=== PATIENT | female | born 1965 | race Caucasian/White ===

== ENCOUNTER 2017-07-09 16:12 | Observation (INO) | payer OTHER ==
[~2017-07-09] VITALS: Ht 175.3 cm; Wt 88.6 kg
[2017-07-09 17:48] VITALS: PULSE 79
[2017-07-09 17:50] VITALS: BP 130/84; PULSE 80; RESP 16
[2017-07-09 17:58] VITALS: Ht 175.3 cm; Wt 88.6 kg
[2017-07-09] MEDS ORDERED: LEVO175T6 PO (18:27)
[2017-07-09] MEDS ORDERED: METO-335 PO (18:27)
[2017-07-09] MEDS ORDERED: ATOR10TA65 PO (18:27)
[2017-07-09] MEDS ORDERED: LISI20TA11 PO (18:27)
[2017-07-09] MEDS ORDERED: UDATA PO (18:27)
[2017-07-09] MEDS ORDERED: AMLO5TAB4 PO (18:27)
[2017-07-09] MEDS ORDERED: FLUO40CA PO (18:27)
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
[2017-07-09] MEDS ORDERED: MAGNESIUM HYDROXIDE 30ML CUP PO PRN (19:00)
[2017-07-09] MEDS ORDERED: DOCUSATE SODIUM 100 MG CAP PO PRN (19:00)
[2017-07-09] MEDS ORDERED: NACL 0.9% 3 ML SYG IV SCH (19:00)
[2017-07-09] MEDS ORDERED: hydrOXYzine HCL 2 MG/ML 5ML CUP PO PRN (19:00)
[2017-07-09] MEDS ORDERED: BISACODYL (EC) 5 MG TAB PO PRN (19:00)
[2017-07-09] MEDS ORDERED: ACETAMINOPHEN 325 MG TAB PO PRN (19:00)
[2017-07-09 19:37] VITALS: BP 147/78; RESP 20
[2017-07-09 20:27] VITALS: PULSE 75
[2017-07-09] MEDS: ATORVASTATIN 10 MG TAB PO SCH (20:32)
[2017-07-09] MEDS: CHLORDIAZEPOXIDE 25 MG CAP PO SCH (20:34)
[2017-07-09] MEDS: LORAZEPAM 1 MG TAB PO PRN (21:32)
[2017-07-10] VITALS (13 sets, daily range): BP systolic 103–136; BP diastolic 60–82; PULSE 66–77; RESP 18–20
[2017-07-10] MEDS ORDERED: LEVOTHYROXINE 175 MCG TAB PO SCH (07:00)
[2017-07-10 08:13] LABS: CHOL/HDL RATIO 3.5 RATIO
[2017-07-10] MEDS: METOPROLOL (XL) 25 MG TAB PO SCH ×2 (09:00→09:36)
[2017-07-10] MEDS: LISINOPRIL 20 MG TAB PO SCH (09:29)
[2017-07-10] MEDS: FOLIC ACID 1 MG TAB PO SCH (09:29)
[2017-07-10] MEDS: CHLORDIAZEPOXIDE 25 MG CAP PO SCH (09:30)
[2017-07-10] MEDS: AMLODIPINE 5 MG TAB PO SCH (09:31)
[2017-07-10] MEDS: MULTIVITAMINS THERAPEUTIC TAB PO SCH (09:31)
[2017-07-10] MEDS: ASPIRIN 81 MG TAB PO SCH (09:31)
[2017-07-10] MEDS: FLUOXETINE 20 MG CAP PO SCH (09:32)
[2017-07-10] MEDS: ENOXAPARIN 40 MG/0.4 ML SYG SC SCH (09:33)
[2017-07-10] MEDS: THIAMINE 100 MG TAB PO SCH (09:33)
--- NOTE | 2017-07-10 11:32 | PN ---
Date/Time of Note Date/Time of Note DATE: 07/10/17 TIME: 11:21 Assessment/Plan VTE Prophylaxis VTE Prophylaxis Intervention: LMWH Lines/Catheters IV Catheter Type (from Nrs): Saline Lock Assessment/Plan Assessment/Plan 1. Chest pain, atypical, follow up with cardiology 2. Alcoholism, patient had withsral symptoms on admission, controlled now, decrease librium 3. HTN, controlled 4. Hypothyroidism, increase synthroid due to TSH 12. Patient did not take synthroid for one week but her PCP was considering increase synthroid before that, 5. Dyslipidemia, on lipitor 6. DVT prophylaxis: lovenox Subjective 24 Hr Interval Summary Free Text/Dictation no chest pain or shortness of breath no tremor Exam/Review of Systems Vital Signs Vitals Vital Signs Date Time Temp Pulse Resp B/P Pulse Ox O2 Delivery O2 Flow Rate FiO2 07/10/17 08:08 97.8 81 20 132/82 97 07/09/17 17:50 Room Air Exam Constitutional: alert, obese, oriented, well developed Head: atraumatic, normocephalic Eyes: EOMI, PERRL, nl conjunctiva, nl lids ENMT: nl external ears & nose, nl lips & teeth, nl nasal mucosa & septum Neck: non-tender, supple Respiratory: clear to auscultation, normal air movement, No congested cough, No crackles/rales, No diminished breath sounds, No intercostal retraction, No labored breathing, No other, No respirations, No tactile fremitus, No wheezing Cardiovascular: nl pulses, regular rate and rhythm, No S3, No S4, No bruits, No diastolic murmur, No edema, No gallop, No irregular rhythm, No jugular venous distention (JVD), No murmurs/extra sounds, No other, No rub, No systolic murmur Gastrointestinal: nl liver, spleen, non-tender, soft, No ascites, No bowel sounds, No distended, No firm, No hepatomegaly, No mass , No other, No rebound or guarding, No splenomegaly, No surgical scars, No tender Musculoskeletal: nl extremities to inspection Extremities: normal pulses, No calf tenderness, No clubbing, No cyanosis, No edema, No other, No palpable cord, No pitting pedal edema, No tenderness Neurological: COMPLIANCE ADVISOR II-XII intact, nl mental status, nl speech, nl strength Lymph: nl lymph nodes Results Results 24 hrs Laboratory Tests Test 07/09/17 19:26 07/10/17 00:54 07/10/17 07:19 Troponin I < 0.012 < 0.012 Hemoglobin A1c 5.3 Triglycerides Level 127 Cholesterol Level 176 LDL Cholesterol, Calculated 101 HDL Cholesterol 50 Cholesterol/HDL Ratio 3.5 Thyroid Stimulating Hormone (TSH) 12.500 H Medications Medications Current Medications Aspirin (Aspirin) 81 mg DAILY PO Last administered on 07/10/17 09:31; Admin Dose 81 MG; Start 07/10/17 at 09:00 Acetaminophen (Tylenol Tab) 650 mg Q6H PRN PO PAIN LEVEL 1-3 OR FEVER; Start at 19:00 Acetaminophen/ Hydrocodone Bitart ([place] (5/325)) 1 tab Q6H PRN PO PAIN LEVEL 4 -6; Start 07/09/17 at 19:00 Docusate Sodium (Colace) 100 mg Q12H PRN PO CONSTIPATION; Start 07/09/17 at 19: 00 Magnesium Hydroxide (Milk Of Mag) 30 ml DAILY PRN PO CONSTIPATION; Start at 19:00 Bisacodyl (Dulcolax) 5 mg DAILY PRN PO CONSTIPATION; Start 07/09/17 at 19:00 Enoxaparin Sodium (Lovenox) 40 mg DAILY SC Last administered on 07/10/17 09:33 ; Admin Dose 40 MG; Start 07/10/17 at 09:00 Amlodipine Besylate (Norvasc) 5 mg DAILY PO Last administered on 07/10/17 09: 31; Admin Dose 5 MG; Start 07/10/17 at 09:00 Atorvastatin Calcium (Lipitor) 10 mg QHS PO Last administered on 07/09/17 20: 32; Admin Dose 10 MG; Start 07/09/17 at 21:00 Fluoxetine HCl (Prozac) 40 mg DAILY PO Last administered on 07/10/17 09:32; Admin Dose 40 MG; Start 07/10/17 at 09:00 Hydroxyzine HCl (Atarax Liquid Cup) 25 mg Q6H PRN PO ITCHING; Start 07/09/17 at 19:00 Lisinopril (Zestril) 20 mg DAILY PO Last administered on 07/10/17 09:29; Admin Dose 20 MG; Start 07/10/17 at 09:00 Metoprolol Succinate (Toprol Xl) 25 mg DAILY PO Last administered on 07/10/17 09:36; Admin Dose 25 MG; Start 07/10/17 at 09:00 Thiamine HCl (Vitamin B1) 100 mg DAILY PO Last administered on 07/10/17 09:33 ; Admin Dose 100 MG; Start 07/10/17 at 09:00 Multivitamins Therapeutic (Theragran) 1 tab DAILY PO Last administered on 09:31; Admin Dose 1 TAB; Start 07/10/17 at 09:00 Folic Acid (Folic Acid) 1 mg DAILY PO Last administered on 07/10/17 09:29; Admin Dose 1 MG; Start 07/10/17 at 09:00 Chlordiazepoxide (Librium) 25 mg TID PO Last administered on 07/10/17 09:30; Admin Dose 25 MG; Start 07/09/17 at 21:00; Stop 07/10/17 at 21:00 Chlordiazepoxide (Librium) 25 mg BID PO ; Start 07/11/17 at 09:00; Stop at 21:00 Chlordiazepoxide (Librium) 25 mg DAILY ONCE PO ; Start 07/12/17 at 09:00; Stop 07/12/17 at 09:01 Lorazepam (Ativan) 1 mg Q4H PRN PO agitation/elevated CIWAS Last administered on 07/09/17 21:32; Admin Dose 1 MG; Start 07/09/17 at 19:30 JOSE GARCIA MD Jul 10, 2017 11:31
[2017-07-10] MEDS: HYDROCODONE/APAP (5/325) TAB PO PRN (12:14)
--- NOTE | 2017-07-10 15:52 | RADRPT ---
Echocardiogram Report Patient Name: VIOLETTA WALTERS Gender: Female Date: 1965 Study Date: 10-Jul-2017 Supervisor Lead Refinery: Radha Gamboa [facility] Location: [id number] Ref. Physician: CHELSY ABAD Quality: Adequate Procedures: Transthoracic echocardiogram with complete 2D, M-Mode, and doppler examination. Indications: Chest Pain. 2D/M Mode Doppler Measurement Value Normal Ranges Measurement Value Normal Ranges LVIDd 2D 3.9 3.5 - 5.6 cm AV Peak Ugo 1.2 m/sec LVIDs 2D 2.4 2.1 - 4.1 cm AV Peak PG 5.7 mmHg LVPWd 2D 1.1 0.6 - 1.1 cm LVOT Peak Ugo 1.0 m/sec IVSd 2D 1.2 0.6 - 1.1 cm MV E Peak Ugo 1.0 m/sec AoR Diam 2D 3.1 2.0 - 3.7 cm MV A Peak Ugo 0.7 m/sec LA Dimen 2D 2.2 2.3 - 4.0 cm MV E/A 1.3 MV Decel Time 194 msec MV Decel Harvey 5 MV E/A 1.3 TR Peak Ugo 2.3 m/sec TR Peak PG 20.8 mmHg RVSP 24.0 mmHg Findings Left Ventricle: Normal left ventricular systolic function. Normal left ventricular cavity size. Mild concentric left ventricular hypertrophy. Ejection fraction is visually estimated at 65 %. Tissue Doppler/Mitral Doppler indices are consistent with pseudonormalization with mildly elevated left atrial pressure (Stage II diastolic dysfunction). Right Ventricle: Normal right ventricular size. Normal right ventricular systolic function. Left Atrium: The left atrium is normal in size. Right Atrium: The right atrium is normal in size. Mitral Valve: Normal appearance and function of the mitral valve with trace physiologic regurgitation. Aortic Valve: Normal appearance of the aortic valve. No significant aortic stenosis or insufficiency. Tricuspid Valve: Normal appearance of the tricuspid valve. Estimated peak PA systolic pressure 24 mmHg. There is trace tricuspid regurgitation. Pulmonic Valve: Normal pulmonic valve appearance. There is trace pulmonic regurgitation. Pericardium: Normal pericardium with no significant pericardial effusion. Aorta: Normal aortic root. IVC: Normal size and normal respiratory collapse consistent with normal right atrial pressure. Conclusions 1.1. Normal size cardiac chambers. 2.2. Mild concentric left ventricular hypertrophy. 3.3. Normal valvular function. 4.4. LV diastolic dysfunction. 5.5. Normal valvular function. 6.6. Normal pulmonary artery pressure. Electronically Signed By: Judy Canseco 10-Jul-2017 15:51:17 -0700 Patient Name: VIOLETTA WALTERS Study Date: 10-Jul-2017 [id number]
[2017-07-10] MEDS: ATORVASTATIN 10 MG TAB PO SCH (20:51)
[2017-07-10] MEDS ORDERED: CHLORDIAZEPOXIDE 25 MG CAP PO SCH (21:00)
[2017-07-10] MEDS: LORAZEPAM 1 MG TAB PO PRN (23:46)
[2017-07-11] VITALS (10 sets, daily range): BP systolic 100–138; BP diastolic 66–92; PULSE 70–89; RESP 18
[2017-07-11] MEDS: HYDROCODONE/APAP (5/325) TAB PO PRN ×2 (06:28→19:42)
[2017-07-11] MEDS ORDERED: LEVOTHYROXINE 100 MCG TAB PO SCH (07:00)
[2017-07-11 08:41] LABS: BASOPHILS % 0.7 % (0.0-2.0); EOSINOPHILS # 0.4 10^3/ul (0.0-0.5); EOSINOPHILS % 6.9 % (0.0-7.0); HEMATOCRIT 37.4 % (37.0-47.0); HEMOGLOBIN 12.6 g/dl (12.0-16.0); LYMPHOCYTES # 2.1 10^3/ul (0.8-2.9); LYMPHOCYTES % 37.1 % (15.0-51.0); MEAN CORPUSCULAR HEMOGLOBIN 33.9 pg (29.0-33.0); MEAN CORPUSCULAR HGB CONC 33.7 g/dl (32.0-37.0); MEAN CORPUSCULAR VOLUME 100.5 fl (82.0-101.0); MEAN PLATELET VOLUME 10.2 fl (7.4-10.4); MONOCYTE # 0.4 10^3/ul (0.3-0.9); MONOCYTES % 7.2 % (0.0-11.0); NEUTROPHIL # 2.6 10^3/ul (1.6-7.5); NEUTROPHILS % 47.4 % (39.0-77.0); NUCLEATED RED BLOOD CELLS% 0.4 /100WBC (0.0-0.0); PLATELET COUNT 197 10^3/UL (140-415); RED BLOOD COUNT 3.72 10^6/ul (4.20-5.40); RED CELL DISTRIBUTION WIDTH 13.7 % (11.5-14.5); WHITE BLOOD COUNT 5.5 10^3/ul (4.8-10.8)
[2017-07-11] MEDS: LISINOPRIL 20 MG TAB PO SCH (09:00)
[2017-07-11] MEDS ORDERED: CHLORDIAZEPOXIDE 25 MG CAP PO SCH (09:00)
[2017-07-11 09:11] LABS: ALBUMIN 3.4 g/dl (3.3-4.9); ALBUMIN/GLOBULIN RATIO 1.03; BILIRUBIN,INDIRECT 0.4 mg/dl (0-1.1); BILIRUBIN,TOTAL 0.4 mg/dl (0.2-1.3); CALCIUM 9.3 mg/dl (8.4-10.2); CREATININE 0.79 mg/dl (0.44-1.00); POTASSIUM 4.4 mmol/L (3.5-5.1); TOTAL PROTEIN 6.7 g/dl (6.1-8.1)
[2017-07-11] MEDS: ASPIRIN 81 MG TAB PO SCH (09:33)
[2017-07-11] MEDS: MULTIVITAMINS THERAPEUTIC TAB PO SCH (09:34)
[2017-07-11] MEDS: FLUOXETINE 20 MG CAP PO SCH (09:34)
[2017-07-11] MEDS: FOLIC ACID 1 MG TAB PO SCH (09:40)
[2017-07-11] MEDS: METOPROLOL (XL) 25 MG TAB PO SCH (09:42)
[2017-07-11] MEDS: ENOXAPARIN 40 MG/0.4 ML SYG SC SCH (09:48)
[2017-07-11] MEDS: AMLODIPINE 5 MG TAB PO SCH (09:49)
[2017-07-11] MEDS: THIAMINE 100 MG TAB PO SCH (09:51)
[2017-07-11] MEDS ORDERED: LORA1TAB PO (16:00)
[2017-07-11] MEDS ORDERED: SYN1 PO (16:00)
--- NOTE | 2017-07-11 16:12 | DS ---
Date/Time of Note Date/Time of Note DATE: 07/11/17 TIME: 16:03 Discharge Summary Admission/Discharge Info Admit Date/Time Jul 09, 2017 at 17:26 Discharge Date/Time Discharge Diagnosis 1. Chest pain, muscular 2. Alcoholism, patient had withdrawal symptoms on admission, lorazepam prn 3. HTN, controlled 4. Hypothyroidism, increase synthroid, follow up with PCP 5. Dyslipidemia, on lipitor Patient Condition: Stable Hospital Course 52 yo F with pmhx EtOH abuse, depression, HTN, HL presented with several days of chest pain. It was in frontal chest on both side, aching like. No shortness of breath with ii. Patient had tremor and anxiety on admission. Physical exam otherwise unremarkable. For chest pain, troponin negative, ECG and echocardiography unremarkable. Chest pain resolved after admission. It is considered muscular. She is instructed to follow up with PCP. Patient had symptoms of alcohol with gabriele on admission that she gets librium and lorazepam prn. She is calm without anxiety and tremor today. She will be discharged on lorazepam prn. Patient was taking synthroid 175 mcg daily, TSH is high at 12.5. She was not taking it for one week. I increase her synthroid to 200 mcg daily. She will follow up with PCP to adjust dosage. Home Meds Active Scripts Levothyroxine Sodium (Levothroid) 100 Mcg Tablet, 200 MCG PO BEFORE BREAKFAST for 30 Days, TAB Prov:JOSE GARCIA MD 07/11/17 Lorazepam* (Lorazepam*) 1 Mg Tablet, 1 MG PO Q4H Y for agitation/elevated CIWAS , #10 TAB Prov:JOSE GARCIA MD 07/11/17 Reported Medications Metoprolol Succinate* (Toprol XL*) 25 Mg Tab.sr.24h, 25 MG PO DAILY, #30 TAB 07/09/17 Amlodipine Besylate* (Norvasc*) 5 Mg Tablet, 5 MG PO DAILY, TAB 07/09/17 Hydroxyzine Hcl* (Atarax*) 2 Mg/Ml Syrup, 25 MG PO Q6H Y for ITCHING, ML 07/09/17 Lisinopril* (Lisinopril*) 20 Mg Tablet, 20 MG PO DAILY, #30 TAB 07/09/17 Atorvastatin Calcium (Atorvastatin Calcium) 10 Mg Tablet, 10 MG PO QHS, #30 TAB 07/09/17 Fluoxetine Hcl* (Fluoxetine Hcl*) 40 Mg Capsule, 40 MG PO DAILY, CAP 07/09/17 Discontinued Reported Medications Levothyroxine Sodium* (Levothyroxine Sodium*) 175 Mcg Tablet, 175 MCG PO BEFORE BREAKFAST, #30 TAB 07/09/17 Follow-up Plan PCP one week Primary Care Provider [facility] Pending Labs Laboratory Tests Test 07/11/17 07:37 White Blood Count 5.510^3/ul (4.8-10.8) Red Blood Count 3.7210^6/ul (4.20-5.40) Hemoglobin 12.6g/dl (12.0-16.0) Hematocrit 37.4% (37.0-47.0) Mean Corpuscular Volume 100.5fl (82.0-101.0) Mean Corpuscular Hemoglobin 33.9pg (29.0-33.0) Mean Corpuscular Hemoglobin Concent 33.7g/dl (32.0-37.0) Red Cell Distribution Width 13.7% (11.5-14.5) Platelet Count 04916^3/UL (140-415) Mean Platelet Volume 10.2fl (7.4-10.4) Neutrophils % 47.4% (39.0-77.0) Lymphocytes % 37.1% (15.0-51.0) Monocytes % 7.2% (0.0-11.0) Eosinophils % 6.9% (0.0-7.0) Basophils % 0.7% (0.0-2.0) Nucleated Red Blood Cells % 0.4/100WBC (0.0-0.0) Neutrophils # 2.610^3/ul (1.6-7.5) Lymphocytes # 2.110^3/ul (0.8-2.9) Monocytes # 0.410^3/ul (0.3-0.9) Eosinophils # 0.410^3/ul (0.0-0.5) Basophils # 0.010^3/ul (0.0-0.1) Nucleated Red Blood Cells # 0.010^3/ul (0.0-0.0) Sodium Level 139mmol/L (135-144) Potassium Level 4.4mmol/L (3.5-5.1) Chloride Level 103mmol/L (97-110) Carbon Dioxide Level 31mmol/L (21-31) Anion Gap 9 (8-16) Blood Urea Nitrogen 14mg/dl (7-20) Creatinine 0.79mg/dl (0.44-1.00) Glucose Level 96mg/dl (70-220) Calcium Level 9.3mg/dl (8.4-10.2) Total Bilirubin 0.4mg/dl (0.2-1.3) Direct Bilirubin 0.00mg/dl (0.00-0.20) Indirect Bilirubin 0.4mg/dl (0-1.1) Aspartate Amino Transf (AST/SGOT) 24IU/L (15-46) Alanine Aminotransferase (ALT/SGPT) 37IU/L (13-69) Alkaline Phosphatase 96IU/L (42-121) Total Protein 6.7g/dl (6.1-8.1) Albumin 3.4g/dl (3.3-4.9) Globulin 3.30g/dl (1.3-3.2) Albumin/Globulin Ratio 1.03 JOSE GARCIA MD Jul 11, 2017 16:12
[2017-07-12] MEDS ORDERED: CHLORDIAZEPOXIDE 25 MG CAP PO ONE (09:00)
== END 2017-07-11 20:35 | disposition home or self-care (01) ==
LOC: MS4 17:26 → INTOOBSV 17:26
PROVIDERS: ADMIT Internal Medicine; ATTEND Internal Medicine
DX: R07.89 Other chest pain (principal); F10.20 Alcohol dependence, uncomplicated; I10 Essential (primary) hypertension; E78.5 Hyperlipidemia, unspecified; E03.9 Hypothyroidism, unspecified
CPT/HCPCS: 80053; 80061; 83036; 84443; 84484; 85025; 93306; 96372; J1650; Z7500; Z7610; 99217; G0378